=== PATIENT | male | born 1955 | race Caucasian/White ===

== ENCOUNTER 2022-05-15 18:27 | Emergency (ER) | payer OTHER | END 2022-05-15 20:59 | disposition home or self-care (01) | LOC: CSHERS 18:27 | DX: M79.674 Pain in right toe(s) (principal); E11.9 Type 2 diabetes mellitus without complications; J44.9 Chronic obstructive pulmonary disease, unspecified; E78.5 Hyperlipidemia, unspecified; E78.00 Pure hypercholesterolemia, unspecified; I10 Essential (primary) hypertension; Z79.82 Long term (current) use of aspirin; Z79.899 Other long term (current) drug therapy ==

== ENCOUNTER 2024-10-30 18:34 | Inpatient (IN) | payer MEDICARE, OTHER ==
[~2024-10-30 18:34] MED LIST: Iopamidol 370 76% 100 ML VIAL ONE
[2024-10-30] MEDS ORDERED: methylPREDNISolone Sod Succ/PF 125 MG/2 ML VIAL ONE (19:21)
[2024-10-30] MEDS ORDERED: Ondansetron PF 4 MG/2 ML Vial ONE (19:21)
[2024-10-30] MEDS ORDERED: Ipratropium/Albuterol 3 ML NEB ONE (19:22)
[2024-10-30 19:55] LABS: #Basophils 0.03 10x3/uL (0.0-0.2); #Eosinophils 0.01 10x3/uL (0.0-0.5); #Monocytes 1.07 10x3/uL (0.0-1.1); #Neutrophils 8.56 10x3/uL (1.5-8.4); %Basophils 0.3 % (0.0-2.0); %Eosinophils 0.1 % (0.0-6.0); %Lymphocytes 4.9 % (18.0-47.0); %Monocytes 10.5 % (0.0-10.0); %Neutrophils 83.8 % (40.0-75.0); Hemoglobin 14.2 g/dL (13.5-17.5); Mean Corpuscular HGB CONC 32.3 g/dL (32.0-36.0); Mean Corpuscular Hemoglobin 30.5 pg (27.0-33.0); Mean Corpuscular Volume 94.6 fL (81.2-95.1); Mean Platelet Volume 10.6 fL (7.4-10.4); Platelet Count 167 10x3/uL (150-450); RBC Distribution Width 12.8 % (11.5-14.5); Red Blood Cell (RBC) Count 4.65 10x6/uL (4.32-5.72); White Blood Cell (WBC) Count 10.2 10x3/uL (3.5-10.5)
[2024-10-30 20:10] LABS: ALT (SGPT) 24 U/L (8-55); AST (SGOT) 25 U/L (5-34); Albumin 3.4 g/dL (3.4-4.8); Alkaline Phosphatase 68 U/L (40-110); Anion Gap 13 mmol/L (10-20); BUN (Urea Nitrogen) 26 mg/dL (8.4-25.7); Bilirubin, Total 0.6 mg/dL (0.2-1.2); Calc. Creatinine Clearance 0 mL/min (70-130); Calcium 8.6 mg/dL (7.8-10.44); Carbon Dioxide 29 mmol/L (23-31); Chloride 101 mmol/L (98-107); Estimated GFR 94; Globulin 2.8 g/dL (2.4-3.5); Glucose 91 mg/dL (80-115); Lipase 5 U/L (8-78); Magnesium 2.3 mg/dL (1.6-2.6); Potassium 3.9 mmol/L (3.5-5.1); Protein, Total 6.2 g/dL (5.8-8.1); Sodium 139 mmol/L (136-145)
[2024-10-30 20:14] LABS: Bilirubin Neg (Negative); Blood, Urine 150 (Negative); Clarity Cloudy (Clear); Glucose, Urine (Dipstick) >=1000 mg/dL (Negative); Ketone, Urine 50 mg/dL (Negative); Leukocyte 500 (Negative); Nitrite Negative (Negative); Protein, Urine (Dipstick) 30 mg/dl (Neg-Trace); Specific Gravity, Urine 1.015 (1.005-1.030)
[2024-10-30 20:16] LABS: Troponin I 0.011 ng/mL (< 0.028)
[2024-10-30 20:33] LABS: CAUTI Indications for Culture Pelvic or flank pain; WBC/HPF 21-50 HPF (0-3)
[2024-10-30 20:34] LABS: Bacteria/HPF 3+ HPF (None Seen); Mucous/LPF 1+ LPF (<2+); Squamous Epithelial 0-3 HPF (0-3)
[2024-10-30 20:37] LABS: Urine Culture Reflex Yes Yes
[2024-10-30] MEDS ORDERED: cefTRIAXone (ROCEPHIN) 1 GM VIAL ONE (20:59)
[2024-10-30] MEDS ORDERED: Sodium Chloride 0.9% 100 ML ONE (21:00)
[2024-10-30] MEDS ORDERED: Furosemide 40 MG (4 mL) VIAL ONE (21:34)
[2024-10-30] MEDS ORDERED: Acetaminophen 650 MG Suppository PR PRN (23:20)
[2024-10-30] MEDS ORDERED: Ondansetron PF 4 MG/2 ML Vial IVP PRN (23:26)
[2024-10-30] MEDS ORDERED: Ondansetron ODT 4 MG TAB PO PRN (23:26)
[2024-10-30] MEDS ORDERED: Ipratropium/Albuterol 3 ML NEB NEB PRN (23:26)
[2024-10-30] MEDS ORDERED: Glucagon 1 MG/ML KIT IM PRN (23:56)
[2024-10-30] MEDS ORDERED: Dextrose 50% Abboject 50 ML SYRINGE SLOW IVP PRN (23:56)
[2024-10-30] MEDS ORDERED: Dextrose 5% in Water 1,000 ML IV PRN (23:56)
[2024-10-31] MEDS ORDERED: Ipratropium/Albuterol 3 ML NEB ONE ×4 (01:00→18:36)
[2024-10-31] MEDS: Ipratropium/Albuterol 3 ML NEB NEB SCH (01:05)
[2024-10-31] MEDS: FLU (Fluad Triv) TS24-25 (65UP)/MF59C/PF 45 MCG/0.5 ML Syringe IM ONE (02:45)
[2024-10-31 03:34] LABS: #Basophils 0.01 10x3/uL (0.0-0.2); #Monocytes 0.13 10x3/uL (0.0-1.1); #Neutrophils 6.91 10x3/uL (1.5-8.4); %Basophils 0.1 % (0.0-2.0); %Lymphocytes 5.1 % (18.0-47.0); %Monocytes 1.7 % (0.0-10.0); %Neutrophils 92.3 % (40.0-75.0); Hematocrit 45.7 % (38.8-50.0); Hemoglobin 14.8 g/dL (13.5-17.5); Mean Corpuscular HGB CONC 32.4 g/dL (32.0-36.0); Mean Corpuscular Hemoglobin 31.2 pg (27.0-33.0); Mean Corpuscular Volume 96.2 fL (81.2-95.1); Mean Platelet Volume 10.4 fL (7.4-10.4); Platelet Count 167 10x3/uL (150-450); RBC Distribution Width 12.8 % (11.5-14.5); Red Blood Cell (RBC) Count 4.75 10x6/uL (4.32-5.72); White Blood Cell (WBC) Count 7.5 10x3/uL (3.5-10.5)
[2024-10-31 03:45] LABS: Anion Gap 16 mmol/L (10-20); BUN (Urea Nitrogen) 27 mg/dL (8.4-25.7); Calc. Creatinine Clearance 99 mL/min (70-130); Carbon Dioxide 27 mmol/L (23-31); Chloride 100 mmol/L (98-107); Estimated GFR 90; Glucose 190 mg/dL (80-115); Magnesium 2.4 mg/dL (1.6-2.6); Potassium 4.6 mmol/L (3.5-5.1); Sodium 138 mmol/L (136-145)
[2024-10-31] MEDS ORDERED: Furosemide 40 MG (4 mL) VIAL ONE ×2 (05:29→14:56)
[2024-10-31] MEDS: Furosemide 40 MG (4 mL) VIAL SLOW IVP SCH (05:38)
[2024-10-31] MEDS ORDERED: Pantoprazole 40 MG DR.TAB ONE (08:10)
[2024-10-31] MEDS ORDERED: methylPREDNISolone Sod Succ/PF 125 MG/2 ML VIAL ONE (08:10)
[2024-10-31] MEDS ORDERED: Enoxaparin 40 MG (0.4 mL) SYRINGE ONE (08:10)
[2024-10-31] MEDS: Isosorbide Mononitrate 30 MG ER.TAB PO SCH (08:43)
[2024-10-31] MEDS: Empagliflozin 25 MG TAB PO SCH (08:43)
[2024-10-31] MEDS: Spironolactone 25 MG TAB PO SCH (08:43)
[2024-10-31] MEDS: Losartan 50 MG TAB PO SCH (08:45)
[2024-10-31] MEDS: Enoxaparin 40 MG (0.4 mL) SYRINGE SC SCH (08:45)
[2024-10-31] MEDS: Pantoprazole 40 MG DR.TAB PO SCH (08:46)
[2024-10-31] MEDS: methylPREDNISolone Sod Succ/PF 125 MG/2 ML VIAL IVP SCH (08:47)
[2024-10-31] MEDS ORDERED: Tamsulosin HCl 0.4 MG CAP ONE (09:21)
[2024-10-31] MEDS: Tamsulosin HCl 0.4 MG CAP PO SCH (09:40)
[2024-10-31] MEDS ORDERED: Insulin Regular, Human 100 UNIT/ML 10 ML VIAL ONE (11:56)
[2024-10-31] MEDS: Insulin Lispro 100 UNIT/ML 10 ML VIAL SC PRN (12:21)
[2024-10-31 12:58] LABS: Hemoglobin A1c 6.1 % (4.0-6.0)
[2024-10-31] MEDS: Rosuvastatin 20 MG TAB PO SCH (22:05)
[2024-10-31] MEDS: cefTRIAXone\\ROCEPHIN 2 GM in Sodium Chloride 0.9% 100 ML IVPB SCH (23:51)
[2024-11-01] MEDS: Melatonin 3 MG TAB PO SCH (03:42)
[2024-11-01] MEDS: Doxycycline 100 MG CAP PO SCH (09:52)
[2024-11-02] MEDS ORDERED: Benzonatate 100 MG CAP PO PRN ×2 (09:33→09:36)
[2024-11-02] MEDS ORDERED: Electrolyte Replacement Protocol 1 EACH FS PRN (09:35)
[2024-11-02 10:34] LABS: Phosphorus 3.1 mg/dL (2.3-4.7)
[2024-11-02 10:35] LABS: Anion Gap 15 mmol/L (10-20); BUN (Urea Nitrogen) 20 mg/dL (8.4-25.7); Calc. Creatinine Clearance 110 mL/min (70-130); Calcium 9.5 mg/dL (7.8-10.44); Carbon Dioxide 33 mmol/L (23-31); Chloride 95 mmol/L (98-107); Estimated GFR 94; Glucose 199 mg/dL (80-115); Magnesium 2.2 mg/dL (1.6-2.6); Potassium 3.7 mmol/L (3.5-5.1); Sodium 139 mmol/L (136-145)
[2024-11-02] MEDS: Senokot S 8.6-50 MG TAB PO SCH (20:57)
[2024-11-02] MEDS: guaiFENesin ER 600 MG TAB PO SCH (20:57)
[2024-11-03 04:35] LABS: #Basophils 0.04 10x3/uL (0.0-0.2); #Eosinophils 0.12 10x3/uL (0.0-0.5); #Monocytes 1.34 10x3/uL (0.0-1.1); #Neutrophils 5.27 10x3/uL (1.5-8.4); %Basophils 0.5 % (0.0-2.0); %Eosinophils 1.5 % (0.0-6.0); %Lymphocytes 16.5 % (18.0-47.0); %Monocytes 16.3 % (0.0-10.0); %Neutrophils 64.2 % (40.0-75.0); Hematocrit 47.3 % (38.8-50.0); Hemoglobin 15.1 g/dL (13.5-17.5); Mean Corpuscular HGB CONC 31.9 g/dL (32.0-36.0); Mean Corpuscular Hemoglobin 29.8 pg (27.0-33.0); Mean Corpuscular Volume 93.3 fL (81.2-95.1); Mean Platelet Volume 9.8 fL (7.4-10.4); Platelet Count 210 10x3/uL (150-450); RBC Distribution Width 12.7 % (11.5-14.5); Red Blood Cell (RBC) Count 5.07 10x6/uL (4.32-5.72); White Blood Cell (WBC) Count 8.2 10x3/uL (3.5-10.5)
[2024-11-03 04:45] LABS: Anion Gap 14 mmol/L (10-20); BUN (Urea Nitrogen) 23 mg/dL (8.4-25.7); Calc. Creatinine Clearance 111 mL/min (70-130); Calcium 9.5 mg/dL (7.8-10.44); Carbon Dioxide 34 mmol/L (23-31); Chloride 98 mmol/L (98-107); Estimated GFR 95; Glucose 155 mg/dL (80-115); Potassium 3.8 mmol/L (3.5-5.1); Sodium 142 mmol/L (136-145)
[2024-11-03] MEDS: Furosemide 40 MG TAB PO SCH (08:06)
[2024-11-03] MEDS: Carvedilol 6.25 MG TAB PO SCH ×2 (09:55→16:04)
[2024-11-04 04:57] LABS: Anion Gap 14 mmol/L (10-20); BUN (Urea Nitrogen) 22 mg/dL (8.4-25.7); Calc. Creatinine Clearance 112 mL/min (70-130); Calcium 9.2 mg/dL (7.8-10.44); Carbon Dioxide 30 mmol/L (23-31); Chloride 100 mmol/L (98-107); Estimated GFR 95; Glucose 154 mg/dL (80-115); Potassium 4.2 mmol/L (3.5-5.1); Sodium 140 mmol/L (136-145)
[2024-11-04] MEDS: Acetaminophen 325 MG TAB PO PRN (07:13)
[2024-11-04 08:33] VITALS: TEMP 97.9
[2024-11-04 11:01] VITALS: BP 112/72
== END 2024-11-04 12:30 | disposition home or self-care (01) | DRG 291 ==
LOC: CSHERS 18:34 → CSHERHOLD 23:20 → CSHTELE 10-31 21:07
PROVIDERS: ADMIT Family Medicine; ATTEND Hospitalist
DX: I11.0 Hypertensive heart disease with heart failure (principal); I50.43 Acute on chronic combined systolic (congestive) and diastolic (congestive) heart failure; J44.1 Chronic obstructive pulmonary disease with (acute) exacerbation; N30.00 Acute cystitis without hematuria; N40.0 Benign prostatic hyperplasia without lower urinary tract symptoms; I25.10 Atherosclerotic heart disease of native coronary artery without angina pectoris; E11.9 Type 2 diabetes mellitus without complications; E78.00 Pure hypercholesterolemia, unspecified; R33.9 Retention of urine, unspecified; B96.4 Proteus (mirabilis) (morganii) as the cause of diseases classified elsewhere; Z95.1 Presence of aortocoronary bypass graft; Z98.890 Other specified postprocedural states; Z79.899 Other long term (current) drug therapy; Z90.49 Acquired absence of other specified parts of digestive tract; Z79.84 Long term (current) use of oral hypoglycemic drugs; Z88.0 Allergy status to penicillin; Z88.8 Allergy status to other drugs, medicaments and biological substances; Z79.51 Long term (current) use of inhaled steroids; Z86.61 Personal history of infections of the central nervous system
CPT/HCPCS: 36415; 36416; 71045; 74177; 80048; 80053; 81001; 83036; 83690; 83735; 83880; 84100; 84145; 84443; 84484; 85025; 87077; 87086; 87186; 87428; 93005; 93306; 94640; 94760; 94762; 96365; 96375; J0696; J1650; J1815; J1940; J2405; J2919; J7620; Q9967

== ENCOUNTER 2024-11-30 11:25 | Inpatient (IN) | payer MEDICARE, OTHER ==
[~2024-11-30 11:25] MED LIST changes: +Iopamidol 300 61% 100 ML VIAL FS ONE; -Iopamidol 370 76% 100 ML VIAL ONE
[2024-11-30] MEDS ORDERED: Ondansetron PF 4 MG/2 ML Vial ONE ×2 (11:40→16:49)
[2024-11-30] MEDS ORDERED: HYDROmorphone 0.5 MG/0.5 ML SYRINGE ONE (11:42)
[2024-11-30 12:34] LABS: Bilirubin Neg (Negative); Blood, Urine 250 (Negative); Clarity Cloudy (Clear); Glucose, Urine (Dipstick) >=1000 mg/dL (Negative); Ketone, Urine 5 mg/dL (Negative); Leukocyte 500 (Negative); Nitrite Negative (Negative); Protein, Urine (Dipstick) 100 mg/dl (Neg-Trace); Urobilinogen Normal mg/dL (Less than 2)
[2024-11-30 13:07] LABS: #Basophils Less than 0.03 10x3/uL (0.0-0.2); #Eosinophils Less than 0.03 10x3/uL (0.0-0.5); #Monocytes 1.24 10x3/uL (0.0-1.1); #Neutrophils 10.72 10x3/uL (1.5-8.4); %Basophils 0.2 % (0.0-2.0); %Lymphocytes 3.9 % (18.0-47.0); %Monocytes 9.9 % (0.0-10.0); %Neutrophils 85.6 % (40.0-75.0); Hematocrit 50.8 % (38.8-50.0); Hemoglobin 16.2 g/dL (13.5-17.5); Mean Corpuscular HGB CONC 31.9 g/dL (32.0-36.0); Mean Corpuscular Hemoglobin 30.2 pg (27.0-33.0); Mean Corpuscular Volume 94.6 fL (81.2-95.1); Mean Platelet Volume 10.3 fL (7.4-10.4); Platelet Count 183 10x3/uL (150-450); RBC Distribution Width 13.5 % (11.5-14.5); Red Blood Cell (RBC) Count 5.37 10x6/uL (4.32-5.72); White Blood Cell (WBC) Count 12.52 10x3/uL (3.5-10.5)
[2024-11-30 13:17] LABS: Bacteria/HPF 4+ HPF (None Seen); CAUTI Indications for Culture Pelvic or flank pain; Squamous Epithelial 0-3 HPF (0-3); WBC/HPF Greater than 50 HPF (0-3)
[2024-11-30 13:18] LABS: Urine Culture Reflex Yes Yes
[2024-11-30 13:19] LABS: ALT (SGPT) 19 U/L (Less than 45); AST (SGOT) 24 U/L (11-34); Albumin 4.3 g/dL (3.1-4.5); Alkaline Phosphatase 73 U/L (40-110); Anion Gap 13 mmol/L (10-20); BUN (Urea Nitrogen) 21 mg/dL (8.4-25.7); Bilirubin, Total 0.9 mg/dL (0.3-1.2); Calc. Creatinine Clearance 0 mL/min (70-130); Calcium 9.4 mg/dL (7.8-10.44); Carbon Dioxide 28 mmol/L (23-31); Chloride 101 mmol/L (98-107); Estimated GFR 97; Globulin 3.6 g/dL (2.4-3.5); Glucose 154 mg/dL (80-115); Lipase 14 U/L (8-78); Potassium 4.4 mmol/L (3.5-5.1); Protein, Total 7.9 g/dL (5.8-8.1); Sodium 138 mmol/L (136-145)
[2024-11-30] MEDS ORDERED: cefTRIAXone (ROCEPHIN) 2 GM VIAL ONE (14:46)
[2024-11-30] MEDS ORDERED: Magnesium 2 GM/50 ML BAG (IN WATER) ONE (16:41)
[2024-11-30] MEDS ORDERED: Albuterol 2.5 MG (3 mL) NEB ONE (16:44)
[2024-11-30] MEDS ORDERED: Ipratropium Bromide 2.5 ml Neb ONE (16:44)
[2024-11-30] MEDS ORDERED: Ipratropium/Albuterol 3 ML NEB ONE (16:48)
[2024-11-30] MEDS ORDERED: Furosemide 40 MG (4 mL) VIAL ONE (17:12)
[2024-11-30 18:09] LABS: Troponin I Less than 0.010 ng/mL (< 0.028)
[2024-11-30] MEDS ORDERED: Bisacodyl 5 MG TAB PO PRN (18:34)
[2024-11-30] MEDS ORDERED: Senokot S 8.6-50 MG TAB PO PRN (18:34)
[2024-11-30] MEDS ORDERED: Ipratropium/Albuterol 3 ML NEB NEB PRN (18:34)
[2024-11-30] MEDS ORDERED: Bisacodyl 10 MG SUPP PR PRN (18:34)
[2024-11-30 19:52] LABS: D-Dimer Test 0.62 mcg/mL (0.19-0.50); INR-International Normal Ratio 1.1; PTT 29.9 sec (22.0-33.0); Prothrombin Time 12.1 sec (9.5-12.1)
[2024-11-30 19:58] LABS: Troponin I Less than 0.010 ng/mL (< 0.028)
[2024-11-30 20:38] VITALS: BMI 27.2
[2024-11-30] MEDS: Albumin 25% 25 GM (100 mL) BOT IVPB SCH (21:29)
[2024-11-30] MEDS: Piperacillin/Tazobactam 3.375 GM in Sodium Chloride 0.9% 100 ML IVPB SCH (21:30)
[2024-11-30] MEDS: Famotidine/PF 20 mg/2ml Vial SLOW IVP SCH (21:31)
[2024-11-30] MEDS: Morphine 2 MG/ML VIAL SLOW IVP PRN (21:31)
[2024-11-30] MEDS: Aspirin 325 MG TAB PO SCH (21:31)
[2024-11-30 21:37] LABS: Legionella Urinary Ag Negative (Negative); Strep pneumo Urine Ag NEGATIVE (NEGATIVE)
[2024-11-30 22:19] LABS: Troponin I Less than 0.010 ng/mL (< 0.028)
[2024-11-30] MEDS ORDERED: Glucagon 1 MG/ML KIT IM PRN (22:32)
[2024-11-30] MEDS ORDERED: Dextrose 5% in Water 1,000 ML IV PRN (22:32)
[2024-11-30] MEDS ORDERED: Dextrose 50% Abboject 50 ML SYRINGE SLOW IVP PRN (22:32)
[2024-12-01] MEDS: Piperacillin/Tazobactam 3.375 GM in Sodium Chloride 0.9% 100 ML IVPB SCH (00:43)
[2024-12-01 00:48] LABS: Troponin I Less than 0.010 ng/mL (< 0.028)
[2024-12-01] MEDS: Ipratropium/Albuterol 3 ML NEB NEB SCH (01:25)
[2024-12-01 04:14] LABS: Actual Bicarbonate (HCO3v) 31.5 mEq/L (22-28); Analyzer IN Cardio CS NICU; Chloride (VBG) 94 mmol/L (98-106); Critical Notified By: S.Roller. RRT; Hematocrit-VBG 45 % (42.0-52.0); Hemoglobin (Hb) 15.2 g/dL (12.6-17.4); Potassium (VBG) 4.39 mmol/L (3.70-5.30); Puncture Site Other Site; RapidComm Collect By RN; Sodium 136 mmol/L (133-146); pH (venous) 7.301 (7.32-7.43)
[2024-12-01 04:15] LABS: #Basophils Less than 0.03 10x3/uL (0.0-0.2); #Neutrophils 10.73 10x3/uL (1.5-8.4); %Basophils 0.2 % (0.0-2.0); %Eosinophils 2.4 % (0.0-6.0); %Lymphocytes 3.1 % (18.0-47.0); %Monocytes 9.4 % (0.0-10.0); %Neutrophils 84.5 % (40.0-75.0); Hematocrit 45.1 % (38.8-50.0); Hemoglobin 14.3 g/dL (13.5-17.5); Mean Corpuscular HGB CONC 31.7 g/dL (32.0-36.0); Mean Corpuscular Hemoglobin 30.2 pg (27.0-33.0); Mean Corpuscular Volume 95.3 fL (81.2-95.1); Mean Platelet Volume 10.5 fL (7.4-10.4); Platelet Count 158 10x3/uL (150-450); RBC Distribution Width 13.6 % (11.5-14.5); Red Blood Cell (RBC) Count 4.73 10x6/uL (4.32-5.72)
[2024-12-01 04:18] LABS: Anion Gap 18 mmol/L (10-20); BUN (Urea Nitrogen) 24 mg/dL (8.4-25.7); Calc. Creatinine Clearance 89 mL/min (70-130); Calcium 9.4 mg/dL (7.8-10.44); Carbon Dioxide 29 mmol/L (23-31); Cardiac Risk 2.6 (Less than 4.5); Chloride 96 mmol/L (98-107); Cholesterol 90 mg/dl (< 200 Desired); Estimated GFR 81; Glucose 148 mg/dL (80-115); HDL Cholesterol 35 mg/dL (>60 Neg Risk); LDL Cholesterol, Calculated 40 mg/dL; Magnesium 2.6 mg/dL (1.6-2.6); Potassium 4.6 mmol/L (3.5-5.1); Sodium 138 mmol/L (136-145); Triglycerides 77 mg/dL (Less than 150)
[2024-12-01 04:30] LABS: ALT (SGPT) 15 U/L (Less than 45); AST (SGOT) 16 U/L (11-34); Alkaline Phosphatase 64 U/L (40-110); Bilirubin, Direct 0.6 mg/dL (0.1-0.3); Bilirubin, Total 1.1 mg/dL (0.3-1.2); Protein, Total 7.2 g/dL (5.8-8.1)
[2024-12-01] MEDS ORDERED: Mometasone 200 MCG/Formoterol 5 MCG 60 PUFF INHALER INH SCH (06:30)
[2024-12-01] MEDS: Furosemide 40 MG (4 mL) VIAL SLOW IVP SCH (06:40)
[2024-12-01] MEDS ORDERED: Benzonatate 100 MG CAP PO PRN (07:21)
[2024-12-01] MEDS ORDERED: ZEAXANT PO SCH (09:00)
[2024-12-01] MEDS ORDERED: MV MIN PO SCH (09:00)
[2024-12-01] MEDS ORDERED: VIT K PO SCH (09:00)
[2024-12-01] MEDS ORDERED: LUTEIN PO SCH (09:00)
[2024-12-01] MEDS ORDERED: [UNRECOGNIZED DRUG - OTHER] PO SCH (09:00)
[2024-12-01] MEDS: Ondansetron PF 4 MG/2 ML Vial IVP PRN (09:19)
[2024-12-01] MEDS ORDERED: traMADol HCl 50 MG TAB PO PRN (09:29)
[2024-12-01] MEDS ORDERED: Non-Formulary Medication 1 EACH (Tiotropium [Spiriva Handihaler] 18 MCG Box) SCH (10:00)
[2024-12-01] MEDS: Cholecalciferol 1,000 UNITS (25 MCG) TAB PO SCH (10:11)
[2024-12-01] MEDS: Aspirin Chewable 81 MG TAB PO SCH (10:11)
[2024-12-01] MEDS: Empagliflozin 25 MG TAB PO SCH (10:12)
[2024-12-01] MEDS: Enoxaparin 40 MG (0.4 mL) SYRINGE SC SCH (10:15)
[2024-12-01] MEDS: Doxycycline 100 MG CAP PO SCH (10:15)
[2024-12-01] MEDS: Methocarbamol 500 MG TAB PO SCH (10:15)
[2024-12-01] MEDS: glipiZIDE XL 5 mg ER.TAB PO SCH ×3 (12:19→20:40)
[2024-12-01] MEDS ORDERED: Iopamidol 300 61% 100 ML VIAL FS ONE (13:26)
[2024-12-01 18:11] LABS: Actual Bicarbonate (HCO3v) 33.9 mEq/L (22-28); Analyzer IN Cardio CS NICU; Base Excess 5.5 mEq/L (-2 - +2); Chloride (VBG) 92 mmol/L (98-106); Hematocrit-VBG 46 % (42.0-52.0); Hemoglobin (Hb) 15.5 g/dL (12.6-17.4); Potassium (VBG) 4.16 mmol/L (3.70-5.30); Puncture Site Other Site; RapidComm Collect By RN; Sodium 132 mmol/L (133-146)
[2024-12-01 18:27] LABS: Hematocrit 45.5 % (38.8-50.0); Hemoglobin 14.4 g/dL (13.5-17.5); Mean Corpuscular HGB CONC 31.6 g/dL (32.0-36.0); Mean Corpuscular Hemoglobin 30.1 pg (27.0-33.0); Mean Platelet Volume 10.2 fL (7.4-10.4); Platelet Count 153 10x3/uL (150-450); RBC Distribution Width 13.5 % (11.5-14.5); Red Blood Cell (RBC) Count 4.79 10x6/uL (4.32-5.72); White Blood Cell (WBC) Count 12.75 10x3/uL (3.5-10.5)
[2024-12-01 18:40] LABS: INR-International Normal Ratio 1.2; PTT 35.2 sec (22.0-33.0); Prothrombin Time 12.9 sec (9.5-12.1)
[2024-12-01 18:45] LABS: ALT (SGPT) 18 U/L (Less than 45); AST (SGOT) 19 U/L (11-34); Albumin 3.9 g/dL (3.1-4.5); Alkaline Phosphatase 63 U/L (40-110); Anion Gap 14 mmol/L (10-20); BUN (Urea Nitrogen) 25 mg/dL (8.4-25.7); Bilirubin, Total 0.8 mg/dL (0.3-1.2); Calc. Creatinine Clearance 86 mL/min (70-130); Calcium 9.1 mg/dL (7.8-10.44); Carbon Dioxide 30 mmol/L (23-31); Chloride 94 mmol/L (98-107); Estimated GFR 77; Globulin 3.4 g/dL (2.4-3.5); Glucose 179 mg/dL (80-115); Lipase 6 U/L (8-78); Potassium 4.1 mmol/L (3.5-5.1); Protein, Total 7.3 g/dL (5.8-8.1); Sodium 134 mmol/L (136-145)
[2024-12-01] MEDS ORDERED: cefTRIAXone\\ROCEPHIN 2 GM in Sodium Chloride 0.9% 100 ML IVPB SCH (18:45)
[2024-12-01 18:48] LABS: Troponin I 0.034 ng/mL (< 0.028)
[2024-12-01] MEDS: Sodium Chloride 0.9% 1,000 ML IV SCH (21:33)
[2024-12-01] MEDS: Rosuvastatin 20 MG TAB PO SCH (21:33)
[2024-12-02 01:45] LABS: Amphetamine Not Detected (NotDetected); Barbiturates Screen Not Detected (NotDetected); Benzodiazepine Screen Not Detected (NotDetected); Cocaine Metabolite Screen Not Detected (NotDetected); Methadone Not Detected (NotDetected); Methamphetamine Not Detected (NotDetected); Opiate Screen Detected (NotDetected); Oxycodone Screen Not Detected (NotDetected); Phencyclidine (PCP) Not Detected (NotDetected); THC/Cannabinoid Screen Not Detected (NotDetected); Tricyclic Screen Not Detected (NotDetected)
[2024-12-02 03:52] LABS: Actual Bicarbonate (HCO3v) 29.4 mEq/L (22-28); Analyzer IN Cardio CS NICU; Base Excess 2.4 mEq/L (-2 - +2); Chloride (VBG) 96 mmol/L (98-106); Hematocrit-VBG 41 % (42.0-52.0); Hemoglobin (Hb) 13.9 g/dL (12.6-17.4); Potassium (VBG) 3.94 mmol/L (3.70-5.30); Puncture Site Other Site; RapidComm Collect By RN; Sodium 133 mmol/L (133-146); pH (venous) 7.341 (7.32-7.43)
[2024-12-02 04:08] LABS: #Basophils Less than 0.03 10x3/uL (0.0-0.2); #Eosinophils 0.26 10x3/uL (0.0-0.5); #Monocytes 1.31 10x3/uL (0.0-1.1); #Neutrophils 9.61 10x3/uL (1.5-8.4); %Basophils 0.2 % (0.0-2.0); %Eosinophils 2.2 % (0.0-6.0); %Lymphocytes 3.8 % (18.0-47.0); %Monocytes 11.2 % (0.0-10.0); %Neutrophils 81.8 % (40.0-75.0); Hematocrit 39.3 % (38.8-50.0); Hemoglobin 12.9 g/dL (13.5-17.5); Mean Corpuscular HGB CONC 32.8 g/dL (32.0-36.0); Mean Corpuscular Hemoglobin 31.3 pg (27.0-33.0); Mean Corpuscular Volume 95.4 fL (81.2-95.1); Mean Platelet Volume 10.4 fL (7.4-10.4); Platelet Count 141 10x3/uL (150-450); RBC Distribution Width 13.5 % (11.5-14.5); Red Blood Cell (RBC) Count 4.12 10x6/uL (4.32-5.72); White Blood Cell (WBC) Count 11.73 10x3/uL (3.5-10.5)
[2024-12-02 04:16] LABS: Anion Gap 14 mmol/L (10-20); BUN (Urea Nitrogen) 24 mg/dL (8.4-25.7); Calc. Creatinine Clearance 102 mL/min (70-130); Calcium 8.6 mg/dL (7.8-10.44); Carbon Dioxide 27 mmol/L (23-31); Chloride 98 mmol/L (98-107); Estimated GFR 93; Glucose 126 mg/dL (80-115); Magnesium 2.6 mg/dL (1.6-2.6); Potassium 3.9 mmol/L (3.5-5.1); Sodium 135 mmol/L (136-145)
[2024-12-02 04:21] LABS: Troponin I 0.033 ng/mL (< 0.028)
[2024-12-02] MEDS: Acetaminophen 325 MG TAB PO PRN (12:30)
[2024-12-02] MEDS: Insulin Lispro 100 UNIT/ML 10 ML VIAL SC PRN (12:36)
[2024-12-02] MEDS: Albumin 25% 25 GM (100 mL) BOT IVPB SCH (15:00)
[2024-12-02] MEDS: Promethazine HCl 25 MG in Sodium Chloride 0.9% 50 ML IVPB PRN (18:15)
[2024-12-02] MEDS: Pantoprazole 40 MG DR.TAB PO SCH (23:08)
[2024-12-03 05:16] LABS: Actual Bicarbonate (HCO3v) 27.2 mEq/L (22-28); Analyzer IN Cardio CS ER; Base Excess 1.8 mEq/L (-2 - +2); Chloride (VBG) 94 mmol/L (98-106); Hematocrit-VBG 40 % (42.0-52.0); Hemoglobin (Hb) 13.5 g/dL (12.6-17.4); Potassium (VBG) 3.76 mmol/L (3.70-5.30); Puncture Site Other Site; RapidComm Collect By RN; Sodium 130 mmol/L (133-146); pH (venous) 7.395 (7.32-7.43)
[2024-12-03 05:48] LABS: #Basophils Less than 0.03 10x3/uL (0.0-0.2); #Eosinophils Less than 0.03 10x3/uL (0.0-0.5); #Monocytes 1.44 10x3/uL (0.0-1.1); #Neutrophils 8.31 10x3/uL (1.5-8.4); %Basophils 0.2 % (0.0-2.0); %Lymphocytes 5.6 % (18.0-47.0); %Monocytes 13.8 % (0.0-10.0); %Neutrophils 79.9 % (40.0-75.0); Hematocrit 39.4 % (38.8-50.0); Hemoglobin 12.4 g/dL (13.5-17.5); Mean Corpuscular HGB CONC 31.5 g/dL (32.0-36.0); Mean Corpuscular Hemoglobin 29.9 pg (27.0-33.0); Mean Corpuscular Volume 94.9 fL (81.2-95.1); Mean Platelet Volume 10.4 fL (7.4-10.4); Platelet Count 139 10x3/uL (150-450); RBC Distribution Width 13.3 % (11.5-14.5); Red Blood Cell (RBC) Count 4.15 10x6/uL (4.32-5.72)
[2024-12-03 05:51] LABS: Actual Bicarbonate (HCO3v) 21.1 mEq/L (22-28); Analyzer IN Cardio CS ER; Base Excess -0.1 mEq/L (-2 - +2); Calcium, Ionized (venous) 0.97 mmol/L (1.16-1.32); Chloride (VBG) 98 mmol/L (98-106); Hematocrit-VBG 40 % (42.0-52.0); Hemoglobin (Hb) 13.7 g/dL (12.6-17.4); Potassium (VBG) 3.84 mmol/L (3.70-5.30); Puncture Site Other Site; RapidComm Collect By RN; Sodium 130 mmol/L (133-146); pH (venous) 7.528 (7.32-7.43)
[2024-12-03 06:02] LABS: Anion Gap 13 mmol/L (10-20); BUN (Urea Nitrogen) 18 mg/dL (8.4-25.7); Calc. Creatinine Clearance 123 mL/min (70-130); Calcium 8.5 mg/dL (7.8-10.44); Carbon Dioxide 24 mmol/L (23-31); Chloride 101 mmol/L (98-107); Estimated GFR 98; Glucose 100 mg/dL (80-115); Magnesium 2.4 mg/dL (1.6-2.6); Potassium 3.8 mmol/L (3.5-5.1); Sodium 134 mmol/L (136-145)
[2024-12-03] MEDS: Pantoprazole 40 MG DR.TAB PO SCH (08:53)
[2024-12-03 12:39] VITALS: BMI 28.3
[2024-12-03] MEDS ORDERED: methylPREDNISolone Sod Succ/PF 125 MG/2 ML VIAL IVP SCH (14:30)
[2024-12-03 22:12] LABS: Mycoplasma pneumoniae IgG AB 574 U/mL (0-99); Mycoplasma pneumoniae IgM AB Less than 770 U/mL (0-769)
[2024-12-04 05:19] LABS: #Basophils Less than 0.03 10x3/uL (0.0-0.2); #Eosinophils 0.03 10x3/uL (0.0-0.5); #Monocytes 1.39 10x3/uL (0.0-1.1); #Neutrophils 5.38 10x3/uL (1.5-8.4); %Basophils 0.3 % (0.0-2.0); %Eosinophils 0.4 % (0.0-6.0); %Lymphocytes 8.3 % (18.0-47.0); %Monocytes 18.6 % (0.0-10.0); Hematocrit 41.5 % (38.8-50.0); Hemoglobin 13.2 g/dL (13.5-17.5); Mean Corpuscular HGB CONC 31.8 g/dL (32.0-36.0); Mean Corpuscular Hemoglobin 30.1 pg (27.0-33.0); Mean Corpuscular Volume 94.7 fL (81.2-95.1); Platelet Count 147 10x3/uL (150-450); RBC Distribution Width 13.2 % (11.5-14.5); Red Blood Cell (RBC) Count 4.38 10x6/uL (4.32-5.72); White Blood Cell (WBC) Count 7.47 10x3/uL (3.5-10.5)
[2024-12-04 05:40] LABS: Anion Gap 13 mmol/L (10-20); BUN (Urea Nitrogen) 16 mg/dL (8.4-25.7); Calc. Creatinine Clearance 132 mL/min (70-130); Carbon Dioxide 31 mmol/L (23-31); Chloride 97 mmol/L (98-107); Estimated GFR 99; Glucose 98 mg/dL (80-115); Magnesium 2.5 mg/dL (1.6-2.6); Potassium 3.8 mmol/L (3.5-5.1); Sodium 137 mmol/L (136-145)
[2024-12-04] MEDS: Doxycycline 100 MG CAP PO SCH (08:57)
[2024-12-04] MEDS: Furosemide 40 MG (4 mL) VIAL SLOW IVP SCH (15:58)
[2024-12-04] MEDS: Insulin Lispro 100 UNIT/ML 10 ML VIAL SC PRN (20:31)
[2024-12-05 05:37] LABS: #Basophils Less than 0.03 10x3/uL (0.0-0.2); #Eosinophils 0.04 10x3/uL (0.0-0.5); #Monocytes 1.09 10x3/uL (0.0-1.1); #Neutrophils 4.47 10x3/uL (1.5-8.4); %Basophils 0.3 % (0.0-2.0); %Eosinophils 0.6 % (0.0-6.0); %Lymphocytes 10.7 % (18.0-47.0); %Monocytes 17.2 % (0.0-10.0); %Neutrophils 70.7 % (40.0-75.0); Hematocrit 39.1 % (38.8-50.0); Hemoglobin 12.9 g/dL (13.5-17.5); Mean Corpuscular Hemoglobin 30.9 pg (27.0-33.0); Mean Corpuscular Volume 93.5 fL (81.2-95.1); Platelet Count 172 10x3/uL (150-450); RBC Distribution Width 13.1 % (11.5-14.5); Red Blood Cell (RBC) Count 4.18 10x6/uL (4.32-5.72); White Blood Cell (WBC) Count 6.33 10x3/uL (3.5-10.5)
[2024-12-05 06:04] LABS: Anion Gap 13 mmol/L (10-20); BUN (Urea Nitrogen) 15 mg/dL (8.4-25.7); Calc. Creatinine Clearance 116 mL/min (70-130); Calcium 9.6 mg/dL (7.8-10.44); Carbon Dioxide 35 mmol/L (23-31); Chloride 96 mmol/L (98-107); Estimated GFR 96; Glucose 70 mg/dL (80-115); Magnesium 2.3 mg/dL (1.6-2.6); Potassium 3.6 mmol/L (3.5-5.1); Sodium 140 mmol/L (136-145)
[2024-12-05] MEDS: Furosemide 40 MG (4 mL) VIAL SLOW IVP SCH (14:33)
[2024-12-06 04:44] LABS: #Basophils 0.03 10x3/uL (0.0-0.2); #Eosinophils 0.09 10x3/uL (0.0-0.5); #Monocytes 0.91 10x3/uL (0.0-1.1); #Neutrophils 4.83 10x3/uL (1.5-8.4); %Basophils 0.5 % (0.0-2.0); %Eosinophils 1.4 % (0.0-6.0); %Lymphocytes 10.9 % (18.0-47.0); %Monocytes 13.7 % (0.0-10.0); %Neutrophils 72.9 % (40.0-75.0); Hemoglobin 13.3 g/dL (13.5-17.5); Mean Corpuscular HGB CONC 33.3 g/dL (32.0-36.0); Mean Corpuscular Hemoglobin 30.6 pg (27.0-33.0); Mean Corpuscular Volume 92.2 fL (81.2-95.1); Mean Platelet Volume 10.1 fL (7.4-10.4); Platelet Count 219 10x3/uL (150-450); RBC Distribution Width 12.9 % (11.5-14.5); Red Blood Cell (RBC) Count 4.34 10x6/uL (4.32-5.72); White Blood Cell (WBC) Count 6.62 10x3/uL (3.5-10.5)
[2024-12-06 04:58] LABS: Anion Gap 15 mmol/L (10-20); BUN (Urea Nitrogen) 14 mg/dL (8.4-25.7); Calc. Creatinine Clearance 122 mL/min (70-130); Calcium 9.5 mg/dL (7.8-10.44); Carbon Dioxide 32 mmol/L (23-31); Chloride 96 mmol/L (98-107); Estimated GFR 98; Glucose 165 mg/dL (80-115); Magnesium 2.1 mg/dL (1.6-2.6); Potassium 3.5 mmol/L (3.5-5.1); Sodium 139 mmol/L (136-145)
[2024-12-06] MEDS: Potassium Chloride 20 MEQ TAB PO SCH (10:03)
[2024-12-06] MEDS: Furosemide 40 MG (4 mL) VIAL SLOW IVP SCH ×2 (10:04→15:12)
[2024-12-07 05:09] LABS: #Basophils 0.04 10x3/uL (0.0-0.2); #Eosinophils 0.15 10x3/uL (0.0-0.5); #Monocytes 1.22 10x3/uL (0.0-1.1); #Neutrophils 5.77 10x3/uL (1.5-8.4); %Basophils 0.5 % (0.0-2.0); %Eosinophils 1.8 % (0.0-6.0); %Lymphocytes 11.5 % (18.0-47.0); %Monocytes 14.9 % (0.0-10.0); %Neutrophils 70.3 % (40.0-75.0); Hematocrit 44.9 % (38.8-50.0); Hemoglobin 14.7 g/dL (13.5-17.5); Mean Corpuscular HGB CONC 32.7 g/dL (32.0-36.0); Mean Corpuscular Hemoglobin 29.9 pg (27.0-33.0); Mean Corpuscular Volume 91.4 fL (81.2-95.1); Mean Platelet Volume 9.8 fL (7.4-10.4); Platelet Count 289 10x3/uL (150-450); RBC Distribution Width 13.2 % (11.5-14.5); Red Blood Cell (RBC) Count 4.91 10x6/uL (4.32-5.72)
[2024-12-07 05:25] LABS: Anion Gap 16 mmol/L (10-20); BUN (Urea Nitrogen) 19 mg/dL (8.4-25.7); Calc. Creatinine Clearance 98 mL/min (70-130); Calcium 10.1 mg/dL (7.8-10.44); Carbon Dioxide 33 mmol/L (23-31); Chloride 96 mmol/L (98-107); Estimated GFR 89; Glucose 116 mg/dL (80-115); Magnesium 2.1 mg/dL (1.6-2.6); Potassium 3.8 mmol/L (3.5-5.1); Sodium 141 mmol/L (136-145)
[2024-12-07 08:30] VITALS: TEMP 97.7
[2024-12-07] MEDS: Spironolactone 25 MG TAB PO SCH (08:43)
[2024-12-07] MEDS: Furosemide 40 MG TAB PO SCH (08:44)
[2024-12-07 17:41] VITALS: BP 118/73
== END 2024-12-07 19:10 | DRG 689 ==
LOC: SUATTDRO 11:25 → CSHERS 11:25 → CSHTELE 18:32
PROVIDERS: ADMIT Family Medicine; ATTEND Internal Medicine
PROC: 5A09357 Assistance with Respiratory Ventilation, Less than 24 Consecutive Hours, Continuous Positive Airway Pressure (ICD-10-PCS; principal; 2024-11-30)
PROC: 30233J1 Transfusion of Nonautologous Serum Albumin into Peripheral Vein, Percutaneous Approach (ICD-10-PCS; 2024-11-30)
DX: N30.90 Cystitis, unspecified without hematuria (principal); G00.9 Bacterial meningitis, unspecified; I21.A1 Myocardial infarction type 2; J69.0 Pneumonitis due to inhalation of food and vomit; J96.01 Acute respiratory failure with hypoxia; J44.1 Chronic obstructive pulmonary disease with (acute) exacerbation; I50.22 Chronic systolic (congestive) heart failure; J43.9 Emphysema, unspecified; I11.0 Hypertensive heart disease with heart failure; M47.812 Spondylosis without myelopathy or radiculopathy, cervical region; M48.02 Spinal stenosis, cervical region; E78.00 Pure hypercholesterolemia, unspecified; N40.0 Benign prostatic hyperplasia without lower urinary tract symptoms; R33.8 Other retention of urine; R11.2 Nausea with vomiting, unspecified; J44.89 Other specified chronic obstructive pulmonary disease; E11.9 Type 2 diabetes mellitus without complications; M48.061 Spinal stenosis, lumbar region without neurogenic claudication; Z95.1 Presence of aortocoronary bypass graft; Z79.899 Other long term (current) drug therapy; Z87.891 Personal history of nicotine dependence; Z87.442 Personal history of urinary calculi
CPT/HCPCS: 36415; 36416; 51702; 70450; 70551; 71045; 71250; 71275; 72141; 74177; 80048; 80053; 80061; 80076; 80306; 81001; 82533; 82805; 83605; 83690; 83735; 83880; 84484; 85025; 85379; 85610; 85730; 86850; 86900; 86901; 87040; 87070; 87077; 87081; 87086; 87186; 87205; 87428; 87449; 87899; 93005; 93010; 94640; 94660; 94760; 94762; 96365; 96375; 96376; J0696; J1171; J1650; J1815; J1940; J2272; J2405; J2543; J2550; J3475; J3490; J7030; J7611; J7620; J7644; P9047; Q9967

== ENCOUNTER 2025-09-09 08:27 | Outpatient (CLI) | payer OTHER | END 2025-09-09 08:28 | disposition home or self-care (01) | LOC: CSHSLEEP 08:27 | PROVIDERS: ATTEND Internal Medicine | DX: G47.33 Obstructive sleep apnea (adult) (pediatric) (principal); R06.83 Snoring; E66.9 Obesity, unspecified; Z68.27 Body mass index [BMI] 27.0-27.9, adult | CPT/HCPCS: 95800 ==